=== PATIENT | male | born 1970 | race African-American/Black ===

== ENCOUNTER 2019-10-06 11:59 | Outpatient (CLI) | payer BC ==
--- NOTE | 2019-10-06 13:13 | MRI ---
MR the lumbar spine with and without contrast INDICATION: 49-year-old male with low back pain and lumbar radiculopathy COMPARISON: MR the lumbar spine without contrast dated April 23, 2014 TECHNIQUE: Multiplanar multisequence MR images were obtained of lumbar spine with and without IV cont rast. Contrast: 20 cc of MultiHance. FINDINGS: Bone marrow: The benign-appearing hemangioma centered within the right aspect of the S1 vertebral lev el has intervally grown in size now measuring 3.4 x 3.2 x 2.7 cm. This previously measured 2.7 x 1.9 x 1.6 cm. There are peripheral areas of internal macroscopic fat with corduroy like trabeculation consistent with an enlarging benign hemangioma. There is been interval postsurgical change consistent with laminectomies at L5 and S1. Distal spinal cord and conus: Normal. Conus is seen to terminate at the L1 level. Visualized retroperitoneum and paraspinal soft tissues: Normal. No lymphadenopathy demonstrated. Vertebral levels: L5-S1: There is a broad-based disc bulge and loss of disc space height at L5-S1. There is mild-to-mod erate facet hypertrophy. Constellation of findings induces severe left and moderate to severe right neural foraminal narrowing. The degree of neural foraminal narrowing has mildly progressed from the p rior exam. L4-5: There is an asymmetric to the right broad-based disc bulge with facet hypertrophy inducing mode rate right neural foraminal narrowing. This is stable to the prior exam. L3-4: There is a mild broad-based disc bulge and facet hypertrophy but no appreciable central canal o r neural foraminal narrowing. L2-3: There is a mild broad-based disc bulge but no appreciable central canal or neural foraminal john rowing. L1-L2: No appreciable central canal or neuroforaminal narrowing. T12-L1: No appreciable central canal or neuroforaminal narrowing. Postcontrast series: There is mild epidural fibrosis seen enhancing along the laminectomy sites at L4 -5 and L5-S1. No intrathecal nerve root enhancement is seen. IMPRESSION: 1. Worsening severe left and moderate to severe right neural foraminal narrowing at L5-S1 due to disc degenerative and facet osteoarthritic change. 2. Stable moderate right neural foraminal narrowing at L4-5. 3. Mild interval enlargement of the benign-appearing hemangioma centered within the right aspect of t he S1 vertebral level.
--- NOTE | 2019-10-06 13:47 | RAD ---
EXAM: Lumbar spine: 4 views Lateral views obtained with neutral flexion and extension. AP view obtained. INDICATIONS: Low back pain. Lumbar radiculopathy. COMPARISON: None. FINDINGS: AP view shows laminectomy change at the elbow 5 level. Vertebral bodies maintain height and alignment. Mild loss of disc space at L4-5. Mild degenerative spurring. Mild facet hypertrophy. No significant listhesis. IMPRESSION: Mild degenerative changes lumbar spine with postoperative changes at L4-5
[2019-10-06] MEDS ORDERED: Magnevist 469MG/ML 20 ML VIAL ONE (14:12)
== END 2019-10-06 12:00 | disposition home or self-care (01) ==
LOC: MRI 11:59
PROVIDERS: ATTEND Surgery
DX: M47.26 Other spondylosis with radiculopathy, lumbar region (principal); M54.5 Low back pain; M79.606 Pain in leg, unspecified; G62.9 Polyneuropathy, unspecified; M48.07 Spinal stenosis, lumbosacral region; M51.37 Other intervertebral disc degeneration, lumbosacral region; M47.817 Spondylosis without myelopathy or radiculopathy, lumbosacral region; M48.061 Spinal stenosis, lumbar region without neurogenic claudication; D18.09 Hemangioma of other sites; Z98.890 Other specified postprocedural states
CPT/HCPCS: 72120; 72158; A9579

== ENCOUNTER 2020-01-22 09:19 | Outpatient (CLI) | payer BC ==
--- NOTE | 2020-01-22 14:03 | NM ---
Radionuclide bone scan HISTORY: Hemangioma of the sacrum. FINDINGS: Physiologic uptake of radiotracer throughout the skeleton. Degenerative type uptake at the shoulders, knees, and ankles and feet. At the sacrum in the area of concern on recent MRI lumbar spine, no pathologic activity is evident. T here is some uptake within the bladder and urine contamination around the pelvis. A small focus of increased uptake involving the left parietal occipital calvarium is noted. An retros pective review of MRI brain from 04/22/[address] brain 07/20/2016, there is a subtle expansile lytic lesion with some MRI contrast enhancement. Findings are most suggestive of hemangioma. IMPRESSION : Hemangiomas of the sacrum and cranium. No pathologic activity is demonstrated.
== END 2020-01-22 09:20 | disposition home or self-care (01) ==
LOC: NM 09:19
PROVIDERS: ATTEND Surgery
DX: D18.09 Hemangioma of other sites (principal); D18.02 Hemangioma of intracranial structures
CPT/HCPCS: 78306; A9503

== ENCOUNTER 2023-02-10 00:59 | Observation (INO) | payer BC, OTHER ==
[2023-02-10 01:58] LABS: #Eosinphils 0.3 thou/uL (0.0-0.7); #Monocytes 0.6 thou/uL (0.11-0.59); #Neutrophils 5.7 thou/uL (1.40-6.50); %Basophils 0.4 % (0.0-1.0); %Eosinophils 3.1 % (0.0-10.0); %Monocytes 6.5 % (0.0-10.0); %Neutrophils 63.8 % (42.0-75.0); Mean Corpuscular HGB CONC 33.3 g/dL (32.0-36.0); Mean Corpuscular Hemoglobin 29.9 pg (27.0-31.0); Mean Corpuscular Volume 89.8 fl (78.0-98.0); Mean Platelet Volume 9.6 fL (7.4-10.4); Platelet Count 355 10x3/uL (130-400); RBC Distribution Width 14.1 % (11.5-14.5); Red Blood Cell (RBC) Count 4.01 mill/uL (4.70-6.10); White Blood Cell (WBC) Count 8.9 10x3/uL (4.8-10.8)
[2023-02-10 02:26] LABS: ALT (SGPT) 60 U/L (8-55); AST (SGOT) 49 U/L (5-34); Albumin 4.1 g/dL (3.5-5.0); Alkaline Phosphatase 71 U/L (40-110); Anion Gap 15 mmol/L (10-20); BUN (Urea Nitrogen) 12 mg/dL (8.4-25.7); Bilirubin, Total 0.3 mg/dL (0.2-1.2); Calc. Creatinine Clearance 0 mL/min (70-130); Carbon Dioxide 26 mmol/L (22-29); Chloride 104 mmol/L (98-107); Estimated GFR 77; Globulin 4.2 g/dL (2.4-3.5); Glucose 98 mg/dL (70-105); Potassium 4.1 mmol/L (3.5-5.1); Protein, Total 8.3 g/dL (6.0-8.3); Sodium 141 mmol/L (136-145)
[2023-02-10] MEDS ORDERED: Morphine 4 MG/ML VIAL ONE (03:11)
[2023-02-10] MEDS ORDERED: Promethazine HCl 6.25 MG in Sodium Chloride 0.9% 50 ML IVPB SCH (03:45)
[2023-02-10 04:55] LABS: Bacteria/HPF None Seen HPF (None Seen); Bilirubin Negative (Negative); Blood, Urine 1+ (Negative); CAUTI Indications for Culture Pelvic or flank pain; Clarity Clear (Clear); Glucose, Urine (Dipstick) Normal (Negative); Ketone, Urine Negative (Negative); Leukocyte Negative Leu/uL (Negative); Nitrite Negative (Negative); Protein, Urine (Dipstick) 50 mg/dL (Neg-Trace); RBC/HPF 0-3 HPF (0-3); Specific Gravity, Urine 1.021 (1.002-1.036); Squamous Epithelial None Seen HPF (0-3); Urobilinogen Normal mg/dL (Less than 2); WBC/HPF 0-3 HPF (0-3); pH, Urine 6.5 (5.0-9.0)
[2023-02-10 04:59] LABS: Urine Culture Reflex No No
[2023-02-10] MEDS ORDERED: Ondansetron PF 4 MG/2 ML Vial IVP PRN (08:00)
[2023-02-10] MEDS ORDERED: Ondansetron ODT 4 MG TAB SL PRN (08:00)
[2023-02-10 08:14] LABS: Troponin I Less than 0.010 ng/mL (< 0.028)
[2023-02-10] MEDS ORDERED: hydrALAZINE 20 MG/ML VIAL SLOW IVP PRN (08:24)
[2023-02-10] MEDS ORDERED: Milk Of Magnesia 30 ML UDCUP PO PRN (08:25)
[2023-02-10] MEDS ORDERED: Aspirin 325 mg Enteric Coated Tablet PO SCH (09:00)
[2023-02-10] MEDS: Acetaminophen 325 MG TAB PO PRN ×2 (09:57→18:08)
[2023-02-10] MEDS: Pantoprazole 40 MG VIAL IVP SCH ×2 (09:58→20:17)
[2023-02-10 10:45] LABS: Troponin I Less than 0.010 ng/mL (< 0.028)
[2023-02-10 11:02] VITALS: BMI 34.2
[2023-02-10] MEDS ORDERED: Iopamidol-370 76% 500 ML MDV (1 ML CHARGE) ONE (13:38)
[2023-02-10] MEDS: Nitroglycerin 2% Ointment 1 INCH/1 GM Packet TOP SCH ×2 (14:20→20:21)
[2023-02-11 04:33] LABS: #Eosinphils 0.3 thou/uL (0.0-0.7); #Monocytes 0.5 thou/uL (0.11-0.59); %Basophils 0.6 % (0.0-1.0); %Eosinophils 3.7 % (0.0-10.0); %Lymphocytes 27.5 % (21.0-51.0); %Monocytes 7.9 % (0.0-10.0); %Neutrophils 60.2 % (42.0-75.0); Hemoglobin 11.5 g/dL (14.0-18.0); Mean Corpuscular HGB CONC 33.1 g/dL (32.0-36.0); Mean Corpuscular Hemoglobin 29.4 pg (27.0-31.0); Mean Corpuscular Volume 88.7 fl (78.0-98.0); Mean Platelet Volume 9.5 fL (7.4-10.4); Platelet Count 309 10x3/uL (130-400); RBC Distribution Width 13.9 % (11.5-14.5); Red Blood Cell (RBC) Count 3.91 mill/uL (4.70-6.10); White Blood Cell (WBC) Count 6.7 10x3/uL (4.8-10.8)
[2023-02-11 05:09] LABS: Anion Gap 12 mmol/L (10-20); BUN (Urea Nitrogen) 13 mg/dL (8.4-25.7); Calc. Creatinine Clearance 118 mL/min (70-130); Calcium 9.4 mg/dL (7.8-10.44); Carbon Dioxide 26 mmol/L (22-29); Cardiac Risk 4.9 (Less than 4.5); Chloride 106 mmol/L (98-107); Cholesterol 102 mg/dl (< 200 Desired); Estimated GFR 79; Glucose 90 mg/dL (70-105); HDL Cholesterol 21 mg/dL (>60 Neg Risk); LDL Cholesterol, Calculated 64 mg/dL; Potassium 3.6 mmol/L (3.5-5.1); Sodium 140 mmol/L (136-145); Triglycerides 87 mg/dL (Less than 150)
[2023-02-11 07:46] VITALS: BP 164/104; TEMP 98.1
[2023-02-11] MEDS ORDERED: Aspirin Chewable 81 MG TAB PO SCH (09:00)
[2023-02-11] MEDS ORDERED: hydrALAZINE 25 MG TAB PO SCH (09:00)
[2023-02-11] MEDS ORDERED: Clopidogrel Bisulfate 75 MG TAB PO SCH (09:00)
[2023-02-11] MEDS ORDERED: Losartan 25 MG TAB PO SCH (09:00)
[2023-02-11] MEDS: Pantoprazole 40 MG VIAL IVP SCH (09:11)
[2023-02-11] MEDS ORDERED: Rosuvastatin 20 MG TAB PO SCH (21:00)
== END 2023-02-11 10:08 | disposition home or self-care (01) ==
LOC: ERS 00:59 → 2NO 07:17 → INTOOBSV 07:17
PROVIDERS: ADMIT Internal Medicine; ATTEND Internal Medicine
DX: R10.9 Unspecified abdominal pain (principal); I10 Essential (primary) hypertension; I25.10 Atherosclerotic heart disease of native coronary artery without angina pectoris; Z79.82 Long term (current) use of aspirin; Z79.02 Long term (current) use of antithrombotics/antiplatelets; Z79.899 Other long term (current) drug therapy; Z90.49 Acquired absence of other specified parts of digestive tract
CPT/HCPCS: 36415; 71045; 71275; 74174; 80048; 80053; 80061; 81001; 83690; 83880; 84484; 85025; 93005; 93010; 94760; 96365; 96375; 96376; C9113; G0378; J2270; J2550; Q9967